=== PATIENT | female | born 1970 | race African-American/Black ===

== ENCOUNTER → 2019-10-19 | Day surgery (SDC) | payer OTHER ==
[~2019-10-19] VITALS: Ht 182.9 cm; Wt 88.5 kg
[~2019-10-19] MED LIST: 8 HOUR C500 MG PO; BLOOD BUILDER PO; FISH OIL 1,001000 M3 PO; FOLIC ACID0.4 MG PO; HEMA-PLEX PO; IRON325 M1 PO; LEVOTHYROXINE125 MCG PO; RA VIT B-12 1,1 EACH SUBLING; VITAMIN D3100 MCG PO; [UNRECOGNIZED DRUG - OTHER] PO
--- NOTE | ~2019-10-19 | O ---
[facility] [address] OPERATIVE REPORT Name: DAMIAN CHILDRESS Room #: REG [facility]..#: [id number] Admission: 10/19/19 Attend Phys: Lauri Lujan MD Discharge: Date of : 72 Report #: [id number] THIS REPORT FOR: cc: Jasvir Patrick MD,Jasvir Alvarado,Phill Clinton MD ~ CC: Phill Lujan DATE OF SERVICE: 10/19/2019 PREOPERATIVE DIAGNOSIS: Graves' disease. POSTOPERATIVE DIAGNOSIS: Graves' disease. OPERATIVE PROCEDURE PLAN: Right endoscopic medial and inferior orbital wall decompression in conjunction with a lateral transcutaneous decompression and tarsorrhaphy. SURGEONS: Phill Alvarado and Dr. Lujan. ANESTHESIA: General by laryngeal mask. PROCEDURE: The patient was taken to the operating room and placed in supine position. General anesthesia was induced by laryngeal mask. Once adequate general anesthesia was obtained, local nasal anesthesia was induced by submucoperiosteal injection of 1% lidocaine with 1:100,000 epinephrine and topical application of cocaine solution. The patient was then draped in a sterile manner. The nasal endoscope was used to visualize the right nasal cavity and the middle turbinate was deviated medially. The uncinate process was removed using the microdebrider and the natural opening of the maxillary sinus was located. It was enlarged in a posterior inferior manner by removing the soft fontanelle. An ethmoidectomy was performed by removing the ethmoidal bulla and then following the ethmoid air cells back to and through the basal lamella and then forward along the lamina papyracea and fovea ethmoidalis to complete the ethmoidectomy anteriorly. The lamina papyracea bone was exposed from the anterior face of the sphenoid posteriorly to the fovea ethmoidalis superiorly to the root of the uncinate process anteriorly and into the maxillary sinus inferiorly. Using a blunt tipped seeker instrument, the bone was slowly chipped away to expose the underlying periorbita. The periorbita was then incised with 2 horizontal incisions, one superiorly and one inferiorly. They were then connected in the middle and the orbital fat was allowed to prolapse into the ethmoid cavity. A rolled piece of Merogel was placed between the middle turbinate and lateral wall of the nose to prevent scarring and to promote hemostasis. At this point, Dr. Lujan performed a lateral transcutaneous [facility] [address] [place] [address] OPERATIVE REPORT Name: DAMIAN CHILDRESS Room #: REG [facility]#: [id number] Admission: 10/19/19 Attend Phys: Lauri Lujan MD Discharge: Date of : 72 Report #: [id number] decompression and tarsorrhaphy. At the conclusion of the procedure, the patient was awoken and taken to the recovery room in stable condition for postoperative monitoring. Blood loss for the procedure was 25 mL. By: 1918 1930 Phill Alvarado MD /lyle
--- NOTE | ~2019-10-19 | O ---
[facility] [place] [address] OPERATIVE REPORT Name: DAMIAN CHILDRESS Room #: REG [facility]..#: [id number] Admission: 10/19/19 Attend Phys: Lauri Lujan MD Discharge: Date of : 72 Report #: [id number] THIS REPORT FOR: cc: Jasvir Patrick MD, Steven A. MD White, William L. MD ~ CC: Brett Lujan DATE OF SERVICE: 10/19/2019 PREOPERATIVE DIAGNOSIS: Graves' disease. POSTOPERATIVE DIAGNOSIS: Graves' disease. PROCEDURE: Right lateral orbital decompression with temporary tarsorrhaphy. SURGEON: Lauri Lujan MD. SORTING SUPERVISOR: Phill Alvarado MD ANESTHESIA: General. COMPLICATIONS: None. ESTIMATED BLOOD LOSS: 25 mL. INDICATIONS FOR SURGERY: This pleasant 49-year-old woman presents with Graves' disease and history of globe subluxation with proptosis and presents for combined endoscopic medial wall and floor orbital decompression done in conjunction with transcutaneous lateral orbital decompression and temporary tarsorrhaphy of the right eye. Informed consent was obtained to include but not limited to the potential risk for loss of vision, double vision, bleeding, infection, failure to improve the problem, scarring, the potential need for further surgery including surgery for double vision. DESCRIPTION OF OPERATION: The patient was taken to the operating room, where general anesthesia was administered. The lateral upper lid was then anesthetized with 2% Xylocaine with epinephrine mixed with equal parts of 0.75% Marcaine with Wydase. The infratemporal fossa was then anesthetized with the same anesthetic mixture. The patient was subsequently prepped and draped in the usual sterile fashion. Dr. Alvarado prepared the nose with [facility] [address] [place] [address] OPERATIVE REPORT Name: FIORDAMIAN Bear Room #: REG [facility].#: [id number] Admission: 10/19/19 Attend Phys: Lauri Lujan MD Discharge: Date of : 72 Report #: [id number] vasoconstrictive-soaked Cottonoids and intranasal mucosal injections. The patient received intravenous Decadron and antibiotics at the beginning of the procedure. After being sterilely prepped and draped, a temporary tarsorrhaphy was fashioned from a short section of IV tubing and a double-armed 5-0 nylon suture. It was placed at the junction of the medial 2/3 and the 1/3 of the eyelid. The transnasal portion of the procedure was then resumed. After the transnasal, endoscopic, medial wall and floor, and orbital decompression had been accomplished and the nose repacked with vasoconstrictive-soaked Cottonoids, the extended upper lid crease incision was reanesthetized. The Cottonoids were removed and the periosteum was opened to allow the fat transnasally to decompress into the newly created space. The nose was then repacked and gloves were changed and instruments switched out as the lateral orbital decompression was commenced. A curvilinear incision was initially outlined and then made with a 15-C blade, extending a lid crease incision into the infratemporal fossa. The dissection was then carried down to periosteum with the Mingo needle, obtaining hemostasis with diligent monopolar cautery. The periosteum was then sharply incised and then gently reflected medially out of the lateral orbit. The zygomatic facial and zygomatic temporal neurovascular bundles were identified and cauterized as they were encountered. The orbital contents were then retracted and protected with the malleable retractor as the skin from the inferior portion of the wound was protected with a skin rake. A 3.5-mm cutting/irrigating drill was then used to thin the bone at the lateral orbit. The anterior limit of the dissection was the lateral orbital rim. The superior and inferior limits of the dissection were the orbital roof and floor respectively. Hemostasis was reachieved with monopolar cautery and judicious use of bone wax. The periosteum of the lateral orbit was then incised with the Mingo needle. A large H-shaped flap in the periosteum was then created, allowing the fat to billow out into the newly created space. The periosteum was then closed with interrupted buried 5-0 Vicryl sutures. The subcutaneous structures were closed with interrupted 5-0 Vicryl sutures. The skin was then closed with 6-0 plain gut sutures. The wound was dressed with erythromycin ointment followed by Telfa pad. The temporary nasal packing was removed and absorbable nasal pack placed. The patient was subsequently transported to the recovery area, having tolerated the procedure well with no anesthetic or operative complications being noted. By: 16 36 Lauri Lujan MD /nt
[2019-10-19 16:54] VITALS: BP 129/82
--- NOTE | 2019-10-19 17:17 | H ---
[facility] [place] [address] HISTORY AND PHYSICAL Name: DAMIAN CHILDRESS Room #: REG [facility] M.R.#: [id number] Admission: 10/19/19 Attend Phys: Lauri Lujan MD Discharge: Date of : 72 Report #: [id number] THIS REPORT FOR: cc: Jasvir Patrick MD,Jasvir Alvarado,Phill Clinton MD ~ CC: Phill Lujan DATE OF PROCEDURE: 10/19/2019 HISTORY OF PRESENT ILLNESS: The patient had her thyroid removed in 1997 for thyroid cancer. She developed Graves' disease over the last year or so. She has severe proptosis with double vision and visual loss. She had complete subluxation of her right eye a few weeks ago. A CT scan of her sinuses shows a fairly midline nasal septum with adequate openings into the sinuses and no evidence of chronic sinusitis. She has very large extraocular muscles and severe proptosis on both sides. PAST MEDICAL HISTORY: Otherwise, not significant. MEDICATIONS: Her only medication is Synthroid. ALLERGIES: She has no known drug allergies. PHYSICAL EXAMINATION: Her nose was clear. Her oropharynx and oral cavity were normal. IMPRESSION: Graves' disease with proptosis. PLAN: Endoscopic medial and inferior orbital wall decompression in conjunction with a lateral transcutaneous decompression and tarsorrhaphy with Dr. Lujan. <ELECTRONICALLY SIGNED> By: Phill Alvarado MD 10/19/19 1717 1418 1429 Phill Alvarado MD /lyle
== END | disposition home or self-care (01) ==
LOC: OR 09:40
DX: E05.00 Thyrotoxicosis with diffuse goiter without thyrotoxic crisis or storm (principal); Z79.899 Other long term (current) drug therapy
CPT/HCPCS: 50010; 50101; 50386; 50398; 50505; 50573; 51636; 53635; 55340; 56528; 56531; 56635; 57246; 62110; 62900; 70005

== ENCOUNTER 2019-11-23 14:34 | Day surgery (SDC) | payer OTHER ==
[~2019-11-23] VITALS: Ht 182.9 cm; Wt 85.3 kg
--- NOTE | 2019-11-23 08:45 | H ---
[facility] [place] [address] HISTORY AND PHYSICAL Name: DAMIAN CHILDRESS Room #: PRE [facility] M.R.#: [id number] Admission: Attend Phys: Lauri Lujan MD Discharge: Date of : 72 Report #: [id number] THIS REPORT FOR: cc: Jasvir Patrick MD, Steven A. MD Shapiro,Phill Clinton MD ~ CC: Phill Lujan DATE OF PROCEDURE: 11/23/2019 HISTORY OF PRESENT ILLNESS: The patient had her thyroid removed in 1997 for thyroid cancer. She developed Graves' disease over the last year or so, she has severe proptosis with double vision and visual loss. She had complete subluxation of her right eye several weeks ago. A CT scan shows a fairly midline nasal septum with adequate openings into the sinuses and no evidence of chronic sinusitis. She has very large extraocular muscles and severe proptosis on both sides. She underwent a right inferior and medial wall orbital decompression in October and she is scheduled for the left eye procedure now. PAST MEDICAL HISTORY: Otherwise, not significant. MEDICATIONS: Only medication is Synthroid. ALLERGIES: She has no known drug allergies. PHYSICAL EXAMINATION: Her nose was clear. The oropharynx and oral cavity were normal. IMPRESSION: Graves' disease with proptosis. PLAN: Left endoscopic medial and inferior orbital wall decompression in conjunction with a lateral transcutaneous decompression and tarsorrhaphy with Dr. Lujan. <ELECTRONICALLY SIGNED> By: Phill Alvarado MD 11/23/19 0845 1628 1638 Phill Alvarado MD /nt
[2019-11-23 15:01] VITALS: BP 101/59
--- NOTE | 2019-11-30 06:26 | O ---
[facility] [place] [address] OPERATIVE REPORT Name: DAMIAN CHILDRESS Room #: DEP [facility].#: [id number] Admission: 11/23/19 Attend Phys: Lauri Lujan MD Discharge: 11/23/19 Date of : 72 Report #: [id number] THIS REPORT FOR: cc: Jasvir Patrick MD, Steven A. MD White, William L. MD ~ CC: Brett Lujan DATE OF SERVICE: 11/23/2019 PREOPERATIVE DIAGNOSIS: Graves' disease. POSTOPERATIVE DIAGNOSIS: Graves' disease. PROCEDURE: Left lateral orbital decompression with temporary tarsorrhaphy. SURGEON: Lauri Lujan MD. SPORTS EQUIPMENT RACKER: Phill Alvarado MD ANESTHESIA: General. COMPLICATIONS: None. ESTIMATED BLOOD LOSS: 50 mL. INDICATIONS FOR PROCEDURE: This pleasant 49-year-old woman with profound proptosis and globe subluxation presents for a combined endoscopic medial wall and floor orbital decompression done in conjunction with a transcutaneous lateral orbital decompression and temporary tarsorrhaphy in order to reduce her risk of recurrent globe subluxation and irreversible loss of vision. Informed consent was obtained to include but not limited to the potential risk for loss of vision, double vision, bleeding, infection, failure to improve the problem, scarring, and the potential need for further surgery including surgery for double vision. DESCRIPTION OF OPERATION: The patient was taken to the operating room, where general anesthesia was administered. The lateral upper lid was then anesthetized with 2% Xylocaine with epinephrine mixed with equal parts of 0.75% Marcaine with Wydase. The infratemporal fossa was then anesthetized with the same anesthetic mixture. The patient was subsequently prepped and draped in the [address] [address] OPERATIVE REPORT Name: DAMIAN CHILDRESS Room #: DEP [facility] Dejon#: [id number] Admission: 11/23/19 Attend Phys: Lauri Lujan MD Discharge: 11/23/19 Date of : 72 Report #: [id number] usual sterile [address] Alvarado prepared the nose with vasoconstrictive-soaked Cottonoids and intranasal mucosal injections. The patient received intravenous Decadron and antibiotics at the beginning of the procedure. After being sterilely prepped and draped, a temporary tarsorrhaphy was fashioned from a short section of IV tubing and a double-armed 5-0 nylon suture. It was placed at the junction of the medial 2/3 and the 1/3 of the eyelid. The transnasal portion of the procedure was then resumed. After the transnasal, endoscopic, medial wall and floor, and orbital decompression had been accomplished and the nose repacked with vasoconstrictive-soaked Cottonoids, the extended upper lid crease incision was reanesthetized. The Cottonoids were removed and the periosteum was opened to allow the fat transnasally to decompress into the newly created space. The nose was then repacked and gloves were changed and instruments switched out as the lateral orbital decompression was commenced. A curvilinear incision was initially outlined and then made with a 15-C blade, extending a lid crease incision into the infratemporal fossa. The dissection was then carried down to periosteum with the Delta needle, obtaining hemostasis with diligent monopolar cautery. The periosteum was then sharply incised and then gently reflected medially out of the lateral orbit. The zygomatic facial and zygomatic temporal neurovascular bundles were identified and cauterized as they were encountered. The orbital contents were then retracted and protected with the malleable retractor as the skin from the inferior portion of the wound was protected with a skin rake. A 3.5-mm cutting/irrigating drill was then used to thin the bone at the lateral orbit. The anterior limit of the dissection was the lateral orbital rim. The superior and inferior limits of the dissection were the orbital roof and floor respectively. Hemostasis was reachieved with monopolar cautery and judicious use of bone wax. The periosteum of the lateral orbit was then incised with the Delta needle. A large H-shaped flap in the periosteum was then created, allowing the fat to billow out into the newly created space. The periosteum was then closed with interrupted buried 5-0 Vicryl sutures. The subcutaneous structures were closed with interrupted 5-0 Vicryl sutures. The skin was then closed with 6-0 plain gut sutures. The wound was dressed with erythromycin ointment followed by Telfa pad. The temporary nasal packing was removed and absorbable nasal pack placed. The patient was subsequently transported to the recovery area, having tolerated the procedure well with no anesthetic or operative complications being noted. [address] [address] OPERATIVE REPORT Name: DAMIAN CHILDRESS Room #: DEP [facility] Dejon#: [id number] Admission: 11/23/19 Attend Phys: Lauri Lujan MD Discharge: 11/23/19 Date of : 72 Report #: [id number] Thank you very much. <ELECTRONICALLY SIGNED> By: Lauri Lujan MD 11/30/19 0626 1745 1843 Lauri Lujan MD /nt
--- NOTE | 2019-12-03 11:02 | O ---
[facility] [place] [address] OPERATIVE REPORT Name: DAMIAN CHILDRESS Room #: DEP [facility]..#: [id number] Admission: 11/23/19 Attend Phys: Lauri Lujan MD Discharge: 11/23/19 Date of : 72 Report #: [id number] THIS REPORT FOR: cc: Jasvir Patrick MD, Steven A. MD Shapiro,Phill Clinton MD ~ CC: Phill Lujan DATE OF SERVICE: 11/23/2019 PREOPERATIVE DIAGNOSIS: Graves' disease. POSTOPERATIVE DIAGNOSIS: Graves' disease. OPERATIVE PROCEDURE: Left endoscopic medial and inferior orbital wall decompression in conjunction with a lateral transcutaneous decompression and tarsorrhaphy. SURGEONS: Phill Alvarado and Dr. Lujan. ANESTHESIA: General by laryngeal mask. DESCRIPTION OF PROCEDURE: The patient was taken to the operating room and placed in supine position. General anesthesia was induced by laryngeal mask. Once adequate general anesthesia was obtained, local nasal anesthesia was induced by submucoperiosteal injection of 1% lidocaine with 1:100,000 epinephrine and topical application of cocaine solution. The patient was then prepared and draped in a sterile manner. The nasal endoscope was used to visualize the left nasal cavity and the middle turbinate was deviated medially. The uncinate process was removed using the microdebrider and the natural opening of the maxillary sinus was located. It was enlarged in a posterior inferior manner by removing the soft fontanelle. An ethmoidectomy was performed by removing the ethmoidal bulla and then following the ethmoid air cells back to and through the basal lamella and then forward along the lamina papyracea and fovea ethmoidalis to complete the ethmoidectomy anteriorly. The lamina papyracea bone was exposed from the anterior face of the sphenoid posteriorly to the fovea ethmoidalis superiorly to the root of the uncinate process anteriorly and into the maxillary sinus inferiorly. Using a blunt tipped seeker instrument, the bone was slowly chipped away to expose the underlying periorbita. The periorbita was then incised with 2 horizontal incisions, one superiorly and one inferiorly. These were connected in the middle and the orbital fat was allowed to prolapse into the ethmoid cavity. A rolled piece of Merogel was placed between the middle turbinate and the lateral wall of the nose to prevent scarring and to promote hemostasis. At this point, Dr. Lujan [address] [address] OPERATIVE REPORT Name: FIORDAMIAN Bear Room #: DEP [facility].#: [id number] Admission: 11/23/19 Attend Phys: Lauri Lujan MD Discharge: 11/23/19 Date of : 72 Report #: [id number] performed a lateral transcutaneous decompression and tarsorrhaphy. At the conclusion of the procedure, the patient was then awoken and taken to the recovery room in stable condition for postoperative monitoring. Blood loss for the procedure was 50 mL. <ELECTRONICALLY SIGNED> By: Phill Alvarado MD 12/03/19 1102 1745 1805 Phill Alvarado MD /nt
== END 2019-11-23 18:54 | disposition home or self-care (01) ==
LOC: OR 14:34 → TBA 14:45 → OR 14:48
PROVIDERS: ATTEND Ophthalmology
DX: E05.00 Thyrotoxicosis with diffuse goiter without thyrotoxic crisis or storm (principal); N18.3 Chronic kidney disease, stage 3 (moderate); Z98.890 Other specified postprocedural states; Z79.899 Other long term (current) drug therapy; Z85.850 Personal history of malignant neoplasm of thyroid; Z11.59 Encounter for screening for other viral diseases
CPT/HCPCS: 50010; 50101; 50386; 50398; 50505; 50573; 53635; 55340; 56528; 56531; 56635; 57246; 62110; 62900; 70005

== ENCOUNTER 2020-10-29 06:16 | Emergency (ER) | payer OTHER ==
[~2020-10-29] VITALS: Ht 182.9 cm; Wt 82.6 kg
[2020-10-29] MEDS ORDERED: PREDNISONE 20 M20 MG PO (07:23)
[2020-10-29 07:46] VITALS: BP 119/70
== END 2020-10-29 07:46 | disposition home or self-care (01) ==
LOC: ER 06:16
DX: L50.8 Other urticaria (principal); T78.40XA Allergy, unspecified, initial encounter; Z79.899 Other long term (current) drug therapy; Y92.89 Other specified places as the place of occurrence of the external cause